=== PATIENT | female | born 2000 | race African-American/Black ===

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

== ENCOUNTER 2018-03-13 02:36 | Emergency (ER) | payer SELFPAY ==
[~2018-03-13] VITALS: Ht 170.2 cm; Wt 68.0 kg
[~2018-03-13 02:36] MED LIST: AMOX875T PO; HYDR-3533 PO; IBUP1TAB7 PO; MAGICADU2 SWISH-SWAL
[2018-03-13 02:41] VITALS: BP 124/81; PULSE 78; RESP 20; TEMP 98.8; O2SAT 97
--- NOTE | 2018-03-13 04:01 | PD ---
HPI Chief Complaint: GI Complaint Time Seen by Provider: 03:33 Travel History International Travel<30 days: No Contact w/Intl Traveler<30days: No Traveled to known affect area: No History of Present Illness HPI 17-year-old black female presents by EMS for evaluation of vomiting. She states that she had eaten a marijuana brownie around 10:00 this evening. She states that around 1:00 she started getting nauseous and vomited. She presents for evaluation. She states that she feels dizzy and lightheaded. She feels under the effects of marijuana. She states that she does not typically smoke marijuana or eat marijuana. On presentation here in the ER she is requesting to sleep and have a warm blanket. Patient states that she is not nauseous anymore. PFSH Past Medical History Medical History: Denies Significant Hx ?: Not LMP: 03/09/18 Past Surgical History Surgical History: No Previous Surgery Social History Alcohol Use: No Tobacco Use: No Substance Use: Yes (Marijuana ) Allergies-Medications (Allergen,Severity, Reaction): Coded Allergies: No Known Allergies (Unverified , 12/08/16) Reported Meds & Prescriptions Reported Meds & Active Scripts Active Review of Systems General / Constitutional: No: Fever Eyes: No: Visual changes HENT: No: Headaches Cardiovascular: No: Chest Pain or Discomfort Respiratory: No: Shortness of Breath Gastrointestinal: Positive: Nausea, Vomiting, No: Abdominal Pain Genitourinary: No: Dysuria Musculoskeletal: No: Pain Skin: No Rash Neurologic: No: Weakness Psychiatric: No: Depression Endocrine: No: Polydipsia Hematologic/Lymphatic: No: Easy Bruising Physical Exam Narrative GENERAL: Well-developed, well-nourished in no acute distress. Nontoxic appearing. HEAD: Normocephalic, atraumatic. EYES: Pupils equal round and reactive. Extraocular motions intact. No scleral icterus. No injection or drainage. ENT: TMs clear without erythema. The external auditory canals clear. Nose: clear . Posterior pharynx is pink and moist. No tonsillar edema or exudate. Uvula midline. Airway patent. NECK: Trachea midline.Supple, nontender, moves head freely. No central bony tenderness or spasm. CARDIOVASCULAR: Regular rate and rhythm without murmurs, gallops, or rubs. RESPIRATORY: Clear to auscultation. Breath sounds equal bilaterally. No wheezes , rales, or rhonchi. GASTROINTESTINAL: Abdomen soft, non-tender, nondistended. No hepato-splenomegaly , or palpable masses. No guarding. EXTREMITIES: No clubbing, cyanosis, or edema. No joint tenderness, effusion, or edema noted. BACK: Nontender without deformity or crepitance. No flank tenderness. Data Data Last Documented VS Vital Signs Date Time Temp Pulse Resp B/P (MAP) Pulse Ox O2 Delivery O2 Flow Rate FiO2 03/13/18 02:41 98.8 78 20 124/81 (95) 97 MDM Medical Decision Making Medical Screen Exam Complete: Yes Emergency Medical Condition: Yes Medical Record Reviewed: Yes Differential Diagnosis Differential diagnoses: Alcohol intoxication, substance abuse, electrolyte abnormality, malingering Narrative Course The patient will be allowed to sleep it off. She is resting comfortable. She is no longer nauseous. The patient will be discharged first thing in the morning. This is vomiting, substance abuse Diagnosis Primary Impression: Vomiting Additional Impression: Substance abuse Patient Instructions: General Instructions Additional Instructions: Rest. Stop marijuana. Increase fluids. Follow-up with a medical doctor in the next 2-3 days for recheck. Return to the ER if any problems. Med/Other Pt SpecificInfo: No Meds Exist/No RX given Disposition: 01 DISCHARGE HOME Condition: Serious (Which was a notes limited) Tiago Smith Mar 13, 2018 04:01
== END 2018-03-13 06:01 | disposition home or self-care (01) ==
LOC: NEPD 02:36
DX: R11.2 Nausea with vomiting, unspecified (principal); F19.10 Other psychoactive substance abuse, uncomplicated
CPT/HCPCS: 99281